=== PATIENT | female | born 1945 | race Caucasian/White ===

== ENCOUNTER 2016-10-03 08:47 | Outpatient (RCR) | payer MEDICARE, OTHER ==
[2016-08-05 17:10] LABS: BLOOD UREA NITROGEN 17 MG/DL (7-18); BUN/CREATININE RATIO 19 (0-20); GFR ESTIMATED > 60
== END 2016-11-03 | disposition home or self-care (01) ==
LOC: ONC 08:47
PROVIDERS: ATTEND Radiology Radiation Oncology
DX: C54.1 Malignant neoplasm of endometrium (principal)
CPT/HCPCS: 77290; 77300; 77301; 77334; 77336; 77338; 77386; 77470; 82565; 84520; 99212; 99214

== ENCOUNTER 2016-12-02 14:22 | Outpatient (RCR) | payer MEDICARE, OTHER | END 2017-03-02 | disposition home or self-care (01) | LOC: ONC 14:22 | PROVIDERS: ATTEND Radiology Radiation Oncology | DX: C54.1 Malignant neoplasm of endometrium (principal) | CPT/HCPCS: 99213 ==